=== PATIENT | female | born 1960 | race Caucasian/White ===

== ENCOUNTER 2021-06-01 16:55 | Emergency (ER) | payer MEDICAID ==
[~2021-06-01] VITALS: Ht 170.2 cm; Wt 65.9 kg
[2021-06-01] MEDS ORDERED: iohexol 350MG/ML 100ml bottle IV ONE (17:42)
[2021-06-01 18:19] LABS: BASOPHILS % (AUTO) 0.2 % (0-1); EOSINOPHILS % (AUTO) 0.1 % (0-6); HEMATOCRIT 50.7 % (35.0-45.0); HEMOGLOBIN 16.6 g/dl (12.0-16.0); LYMPHOCYTES # (AUTO) 0.5 X10'3 (1.1-4.8); LYMPHOCYTES % (AUTO) 3.7 % (21-51); MEAN CORPUSCULAR HEMOGLOBIN 29.3 PG (27.0-31.0); MEAN CORPUSCULAR HGB CONC 32.8 g/dL (33.0-36.5); MEAN CORPUSCULAR VOLUME 89.5 FL (78-98); MEAN PLATELET VOLUME 7.9 FL (7.4-10.4); MONOCYTES # (AUTO) 0.7 X10'3 (0-0.9); MONOCYTES % (AUTO) 5.6 % (2-12); NEUTROPHILS # (AUTO) 11.7 X10'3 (1.8-7.7); NEUTROPHILS % (AUTO) 90.4 % (42-75); PLATELET COUNT 211 X10'3 (140-440); RED BLOOD COUNT 5.67 X10'6 (4.20-5.60); RED CELL DISTRIBUTION WIDTH 16.4 % (11.5-14.5); WHITE BLOOD COUNT 12.9 X10'3 (4.5-11.0)
[2021-06-01 18:23] LABS: D-DIMER 0.31 MG/L FEU (0-0.50)
[2021-06-01 18:28] LABS: ALANINE AMINOTRANSFERASE 39 U/L (12-78); ALBUMIN 3.2 G/DL (3.4-5.0); ALBUMIN/GLOBULIN RATIO 0.8 (1.1-1.5); ALKALINE PHOSPHATASE 97 IU/L (46-116); ANION GAP 13 (8-16); ASPARTATE AMINO TRANSFERASE 23 U/L (10-37); BILIRUBIN,TOTAL 0.6 MG/DL (0.1-1.0); BLOOD UREA NITROGEN 23 MG/DL (7-18); BUN/CREATININE RATIO 32.9 (6.6-38.0); CALCIUM 8.9 MG/DL (8.5-10.1); CHLORIDE 104 MMOL/L (99-107); GLUCOSE 89 MG/DL (70-104); POTASSIUM 3.2 MMOL/L (3.5-5.1); SODIUM 142 MMOL/L (135-145); TOTAL CARBON DIOXIDE 25.5 MMOL/L (24-32); TOTAL PROTEIN 7.1 G/DL (6.4-8.2); eGFR 86 ML/MIN
[2021-06-01 18:36] LABS: C-REACTIVE PROTEIN 0.13 MG/DL (0.0-0.5)
[2021-06-01] MEDS ORDERED: CefTRIAXone 2gm/D5W 50ml BAG 50 ML IV ONE (19:15)
[2021-06-01 19:56] LABS: ANISOCYTOSIS 1+; PLATELET ESTIMATE NORMAL; TOTAL CELLS COUNTED 100
[2021-06-02 01:40] VITALS: BP 180/99
--- NOTE | 2021-06-02 06:58 | NUR ---
PATIENT RECEIVED IN THE ROOM AWAKE.PATIENT REPORTS "SHE WANTS TO GO HOME AND AHVE HER FAMILY HELP HER GET TREATMENT OTHER THAN HOSPITAL TRANSFERRING HER TO ANOTHER HOSPITAL-DR. HERNANDEZ MADE AWARE".
== END 2021-06-02 07:06 | disposition home or self-care (01) ==
LOC: ER 16:57
DX: R22.2 Localized swelling, mass and lump, trunk (principal); Z20.822 Contact with and (suspected) exposure to COVID-19; J98.59 Other diseases of mediastinum, not elsewhere classified; F17.200 Nicotine dependence, unspecified, uncomplicated; F12.90 Cannabis use, unspecified, uncomplicated; Z59.00 Homelessness unspecified; R91.8 Other nonspecific abnormal finding of lung field
CPT/HCPCS: 36415; 71045; 71275; 80053; 83880; 84145; 84484; 85007; 85025; 85379; 86140; 87635; 96365; 99285; C9803; J0696; Q9967

== ENCOUNTER 2021-06-09 11:40 | Emergency (ER) | payer MEDICAID ==
[~2021-06-09] VITALS: Ht 170.2 cm; Wt 64.1 kg
[2021-06-09 13:05] LABS: BASOPHILS % (AUTO) 0.2 % (0-1); EOSINOPHILS % (AUTO) 0 % (0-6); HEMOGLOBIN 14.9 g/dl (12.0-16.0); LYMPHOCYTES # (AUTO) 0.4 X10'3 (1.1-4.8); LYMPHOCYTES % (AUTO) 3.7 % (21-51); MEAN CORPUSCULAR HEMOGLOBIN 29.7 PG (27.0-31.0); MEAN CORPUSCULAR HGB CONC 33.1 g/dL (33.0-36.5); MEAN CORPUSCULAR VOLUME 89.6 FL (78-98); MEAN PLATELET VOLUME 7.8 FL (7.4-10.4); MONOCYTES # (AUTO) 0.5 X10'3 (0-0.9); MONOCYTES % (AUTO) 4.5 % (2-12); NEUTROPHILS # (AUTO) 10.7 X10'3 (1.8-7.7); NEUTROPHILS % (AUTO) 91.6 % (42-75); PLATELET COUNT 188 X10'3 (140-440); RED BLOOD COUNT 5.02 X10'6 (4.20-5.60); RED CELL DISTRIBUTION WIDTH 16.3 % (11.5-14.5); WHITE BLOOD COUNT 11.6 X10'3 (4.5-11.0)
[2021-06-09 13:17] LABS: PARTIAL THROMBOPLASTIN TIME 23 SECONDS (22-32)
[2021-06-09 13:26] LABS: ALANINE AMINOTRANSFERASE 39 U/L (12-78); ALBUMIN 3.1 G/DL (3.4-5.0); ALBUMIN/GLOBULIN RATIO 0.9 (1.1-1.5); ALKALINE PHOSPHATASE 99 IU/L (46-116); ANION GAP 7 (8-16); ASPARTATE AMINO TRANSFERASE 25 U/L (10-37); BILIRUBIN,TOTAL 0.5 MG/DL (0.1-1.0); BLOOD UREA NITROGEN 21 MG/DL (7-18); CALCIUM 8.7 MG/DL (8.5-10.1); CHLORIDE 105 MMOL/L (99-107); CREATININE 0.75 MG/DL (0.40-0.90); GLUCOSE 121 MG/DL (70-104); SODIUM 144 MMOL/L (135-145); TOTAL CARBON DIOXIDE 32.3 MMOL/L (24-32); TOTAL PROTEIN 6.5 G/DL (6.4-8.2); eGFR 79 ML/MIN
--- NOTE | 2021-06-09 13:30 | NUR ---
LAB CALLED [facility]. INFORMED HEIDI FISHER AND JUSTYNA REINOSO
[2021-06-09] MEDS ORDERED: potassium Cl 20 mEq SR tablet PO ONE (14:10)
--- NOTE | 2021-06-09 15:30 | NUR ---
ATTEMPT EKG, PATIENT NOT IN ROOM. WILL ATTEMPT AT LATER TIME.
[2021-06-09 16:35] VITALS: BP 150/81
[2021-06-09 16:46] VITALS: BP 164/94
[2021-06-09 17:37] VITALS: BP 172/92
--- NOTE | 2021-06-09 17:55 | NUR ---
Pt given and understands d/c instructions. Ambulatory with a steady gait.
== END 2021-06-09 17:56 | disposition home or self-care (01) ==
LOC: ER 11:44
DX: R91.8 Other nonspecific abnormal finding of lung field (principal); R06.02 Shortness of breath; R07.89 Other chest pain; F12.90 Cannabis use, unspecified, uncomplicated; Z72.89 Other problems related to lifestyle; Z59.00 Homelessness unspecified
CPT/HCPCS: 20206; 36415; 71045; 76942; 80053; 83880; 85025; 85610; 85730; 93005; 99285

== ENCOUNTER 2021-06-19 10:55 | Day surgery (SDC) | payer MEDICAID ==
[~2021-06-19] VITALS: Ht 170.2 cm; Wt 67.4 kg
[~2021-06-19 10:55] MED LIST: LIDOcaine 1% 30ml preserv. free vial IJ STA
[2021-06-19] MEDS ORDERED: normal saline 1000ml 1,000 ML IV PRN (11:15)
[2021-06-19 11:25] VITALS: BP 157/106
[2021-06-19] MEDS ORDERED: ALLO300T2 PO (13:03)
[2021-06-19] MEDS ORDERED: ACET-1008 PO (13:03)
[2021-06-19] MEDS ORDERED: PROC-8 PO (13:03)
[2021-06-19] MEDS ORDERED: ONDA8TAB13 PO (13:03)
[2021-06-19] MEDS ORDERED: OLAN2.5T3 PO (13:03)
[2021-06-19] MEDS ORDERED: fentaNYL/PF 50MCG/1 ML 2ML syringe ONE ×2 (13:21→16:23)
[2021-06-19] MEDS ORDERED: midazolam 1 mg/ML 2ml injection ONE ×2 (13:21→16:48)
[2021-06-19] MEDS ORDERED: heparin sodium, porcine/PF 100unit/ml 5ML syringe ONE ×2 (13:21→16:22)
--- NOTE | 2021-06-19 13:45 | NUR ---
Pt returned from Angio lab to have Rapid Covid-19 test done prior to procedure. Addendum: 06/19/21 at 1454 by Chris Jarvis RN Amended: Links added.
[2021-06-19 17:33] VITALS: BP 182/127
[2021-06-19 18:00] VITALS: BP 186/96
[2021-06-19 18:15] VITALS: BP 156/67
== END 2021-06-19 18:24 | disposition home or self-care (01) ==
LOC: SSTAY O 10:55
PROVIDERS: ATTEND Radiology Diagnostic Radiology
DX: C34.80 Malignant neoplasm of overlapping sites of unspecified bronchus and lung (principal); M10.9 Gout, unspecified; F32.9 Major depressive disorder, single episode, unspecified; Z79.899 Other long term (current) drug therapy; Z20.822 Contact with and (suspected) exposure to COVID-19; Z87.891 Personal history of nicotine dependence
CPT/HCPCS: 36561; 76937; 77001; 87635; 99152; 99153; C1769; C1788; C1894; C9803; J1642; J2250; J3010

== ENCOUNTER 2021-06-20 14:33 | Emergency (ER) | payer MEDICAID ==
[~2021-06-20] VITALS: Ht 160 cm; Wt 75.0 kg
[~2021-06-20 14:33] MED LIST changes: +ACET-1008 PO; +ALLO300T2 PO; -LIDOcaine 1% 30ml preserv. free vial IJ STA; +OLAN2.5T3 PO; +ONDA8TAB13 PO; +PROC-8 PO
[2021-06-20] MEDS ORDERED: iohexol 300mg/ml 100ml inj. ONE (16:45)
[2021-06-20 17:23] LABS: ALANINE AMINOTRANSFERASE 51 U/L (12-78); ALBUMIN 2.4 G/DL (3.4-5.0); ALBUMIN/GLOBULIN RATIO 0.6 (1.1-1.5); ALKALINE PHOSPHATASE 101 IU/L (46-116); ANION GAP 9 (8-16); ASPARTATE AMINO TRANSFERASE 23 U/L (10-37); BILIRUBIN,TOTAL 0.4 MG/DL (0.1-1.0); BLOOD UREA NITROGEN 28 MG/DL (7-18); CALCIUM 8.6 MG/DL (8.5-10.1); CHLORIDE 106 MMOL/L (99-107); GLUCOSE 100 MG/DL (70-104); SODIUM 145 MMOL/L (135-145); TOTAL CARBON DIOXIDE 30.4 MMOL/L (24-32); TOTAL PROTEIN 6.4 G/DL (6.4-8.2); eGFR 86 ML/MIN
[2021-06-20 17:24] LABS: POTASSIUM 3.6 MMOL/L (3.5-5.1)
[2021-06-20 17:35] LABS: BASOPHILS % (AUTO) 0.3 % (0-1); EOSINOPHILS % (AUTO) 0.1 % (0-6); HEMATOCRIT 39.4 % (35.0-45.0); HEMOGLOBIN 13.2 g/dl (12.0-16.0); LYMPHOCYTES # (AUTO) 0.3 X10'3 (1.1-4.8); LYMPHOCYTES % (AUTO) 3.7 % (21-51); MEAN CORPUSCULAR HEMOGLOBIN 29.9 PG (27.0-31.0); MEAN CORPUSCULAR HGB CONC 33.5 g/dL (33.0-36.5); MEAN CORPUSCULAR VOLUME 89.1 FL (78-98); MEAN PLATELET VOLUME 7.7 FL (7.4-10.4); MONOCYTES # (AUTO) 0.4 X10'3 (0-0.9); MONOCYTES % (AUTO) 4.7 % (2-12); NEUTROPHILS # (AUTO) 8.7 X10'3 (1.8-7.7); NEUTROPHILS % (AUTO) 91.2 % (42-75); PLATELET COUNT 181 X10'3 (140-440); RED BLOOD COUNT 4.43 X10'6 (4.20-5.60); RED CELL DISTRIBUTION WIDTH 16.7 % (11.5-14.5); WHITE BLOOD COUNT 9.5 X10'3 (4.5-11.0)
[2021-06-20 17:49] LABS: APTT 22 SECONDS (22-32); D-DIMER 0.45 MG/L FEU (0-0.50)
[2021-06-21] MEDS ORDERED: heparin 10,000 units/1 ML INJ IV ONE ×2 (00:10→00:20)
[2021-06-21] MEDS ORDERED: heparin 10,000 units/1 ML INJ IV PRN (00:10)
[2021-06-21] MEDS ORDERED: heparin 25,000 UNIT/250ml bag 250 ML IV SCH (00:10)
[2021-06-21] MEDS ORDERED: LORazepam 2 mg/ml vial ONE (08:28)
[2021-06-21] MEDS ORDERED: LORazepam 2 mg/ml vial IV ONE ×2 (08:30→19:55)
[2021-06-21 10:09] LABS: BASOPHILS % (AUTO) 0.1 % (0-1); EOSINOPHILS % (AUTO) 0 % (0-6); HEMATOCRIT 44.3 % (35.0-45.0); HEMOGLOBIN 14.6 g/dl (12.0-16.0); LYMPHOCYTES # (AUTO) 0.5 X10'3 (1.1-4.8); LYMPHOCYTES % (AUTO) 4.8 % (21-51); MEAN CORPUSCULAR HEMOGLOBIN 29.9 PG (27.0-31.0); MEAN CORPUSCULAR VOLUME 90.4 FL (78-98); MEAN PLATELET VOLUME 7.8 FL (7.4-10.4); MONOCYTES # (AUTO) 0.4 X10'3 (0-0.9); MONOCYTES % (AUTO) 4.2 % (2-12); NEUTROPHILS # (AUTO) 9.5 X10'3 (1.8-7.7); NEUTROPHILS % (AUTO) 90.9 % (42-75); PLATELET COUNT 215 X10'3 (140-440); RED CELL DISTRIBUTION WIDTH 17.1 % (11.5-14.5); WHITE BLOOD COUNT 10.4 X10'3 (4.5-11.0)
[2021-06-21 10:34] LABS: ANISOCYTOSIS 1+; PLATELET ESTIMATE NORMAL; TOTAL CELLS COUNTED 100
[2021-06-21 23:35] VITALS: BP 159/104
== END 2021-06-21 20:39 ==
LOC: ER 14:33
DX: I87.1 Compression of vein (principal); C34.81 Malignant neoplasm of overlapping sites of right bronchus and lung; F12.10 Cannabis abuse, uncomplicated; Z59.00 Homelessness unspecified; Z20.822 Contact with and (suspected) exposure to COVID-19
CPT/HCPCS: 36415; 71046; 71260; 80053; 83605; 84484; 85007; 85025; 85379; 85610; 85730; 87040; 87635; 93005; 96365; 96375; 96376; 99285; C9803; J1644; J2060; Q9967

== ENCOUNTER 2021-08-23 10:54 | Emergency (ER) | payer MEDICAID ==
[~2021-08-23] VITALS: Ht 170.2 cm; Wt 64.0 kg
[2021-08-23 11:20] VITALS: BP 137/67
--- NOTE | 2021-08-23 12:16 | NUR ---
ambulated with steady gait to xray.
== END 2021-08-23 12:34 | disposition home or self-care (01) ==
LOC: ER 10:55
DX: M25.561 Pain in right knee (principal); M19.90 Unspecified osteoarthritis, unspecified site; F12.90 Cannabis use, unspecified, uncomplicated; Z59.00 Homelessness unspecified; Z85.118 Personal history of other malignant neoplasm of bronchus and lung; Z79.899 Other long term (current) drug therapy; Z86.79 Personal history of other diseases of the circulatory system
CPT/HCPCS: 73564; 99283

== ENCOUNTER 2022-05-21 08:45 | Emergency (ER) | payer MEDICAID | END 2022-05-21 09:01 | disposition left against medical advice (07) | LOC: ER 08:45 | DX: M79.606 Pain in leg, unspecified (principal); Z53.21 Procedure and treatment not carried out due to patient leaving prior to being seen by health care provider ==